=== PATIENT | male | born 1950 | race Caucasian/White ===

== ENCOUNTER 2016-08-31 00:56 | Inpatient (IN) ==
--- NOTE | 2016-08-31 03:28 | Internal Med History&Physical ---
Date of Encounter: 08/31/16 Time of Encounter: 03:28 Assessment and Plan (1) Atrial fibrillation with rapid ventricular response Current visit: Yes Status: Acute Trigger for A fib/RVR is not apparent at this time. continue with the diltiazem infusion. Will obtain echocardiogram. May need chronic anticoagulation. Cardiology consult for further advice and management. Check TSH (2) Diabetes mellitus Current visit: Yes Status: Chronic Pt had an episode of hypoglycemia. Start sliding scale insulin and reduce the dose of long acting insulin. Qualifiers: Diabetes mellitus type: type 2 Diabetes mellitus complication status: with unspecified complications Diabetes mellitus termite control technician insulin use: with termite control technician use Qualified Code(s): E11.8 - Type 2 diabetes mellitus with unspecified complications; Z79.4 - halfway (current) use of insulin (3) Hypertension Current visit: Yes Status: Chronic Hold home dose of antihypertensives, while on diltiazem infusion Qualifiers: Hypertension type: essential hypertension Qualified Code(s): I10 - Essential (primary) hypertension (4) Pulmonary vascular congestion Current visit: Yes Status: Acute Likely secondary to A fib/RVR. No respiratory distress. Monitor. Expect to improve with improvement of the heart rate (5) DVT prophylaxis Current visit: Yes Status: Acute subQ heparin Internal Medicine - H&P: HPI Chief complaint: Hypoglycemia; palpitations Admitted From: Emergency Dept Plans for Post Hospital Care: Home History of present illness: Mr. Lopez is a 65 year old male with history of diabetes mellitus (insulin treated) and hypertension. He apparently had an episode of hypoglycemia with altered mental status at home. He was taken to emergency department at the [facility], where he was noted to have atrial fibrillation without evidence of response. He was started on diltiazem infusion and admitted to the hospitalist service at [facility], for further management. Pt reports that his blood glucose was not registering (not missed meal / no change to insulin regime), felt jittery and palpitations. EMS was called and taken to the ER. He denies chest pain, shortness of breath, cough, fever, chills, nausea, vomiting, abdominal pain, dysuria, hematuria, changes in bowel habits. He denies any palpitations now. He denies h/o thyroid problems. Past Med Surg Social Fam HX - Past Medical History Medical history: diabetes, hypertension Psychiatric history: no psych history - Social History Smoking Status: Current every day smoker Packs per day: 1.5 ppd Smokeless Tobacco Status: No Alcohol use: none Drug use: none - Family History Father Adopted: [place]: Casa Lopez Family Member Ethnicity: Non- Living Status: Age at : 66 Cause of : prostate cancer Hx Family Cardiac Disorders: No Hx Family Respiratory Disorders: No Hx Family Cancer: Yes Hx Family GI Disorders: Yes Hx Family Genitourinary Disorders: No Hx Family Endocrine Disorder: No Hx Family Musculoskeletal Disorders: No Hx Family Reproductive Disorders: No Internal Medicine - H&P: Meds Aspirin 81 mg PO DAILY 08/30/16 [History] Humalog 08/30/16 [History] Insulin Glargine,Hum.rec.anlog [Lantus Solostar] 100 unit SQ 08/30/16 [History] Lisinopril [Zestril] 08/30/16 [History] Allergies No Known Allergies Allergy (Verified 08/30/16 22:58) All Systems PM: A 10-system review of systems was performed and is negative for pertinent findings except as documented above in the HPI. - Constitutional Vitals: Temp Pulse Resp BP Pulse Ox 97.6 F 113 18 120/64 98 08/31/16 01:56 08/31/16 01:56 08/31/16 01:56 08/31/16 01:56 08/31/16 01:56 Exam: General: Not in acute distress at the time of my evaluation HEENT: Oral mucosa is moist. No conjunctival palor or scleral icterus Neck: No obvious neck swellings Lungs: Clear to auscultation. Occasional right basal crackles Cardiac: Irregular rhythm. No significant murmurs Abdomen: Soft, non tender. Bowel sounds present Genitourinary: No xie catheter Neurological: Alert and oriented. No gross localizing deficits Psych: Not aggressive or agitated Extremities: no significant leg edema Skin: No generalized rash Internal Med - H&P Results - Labs Labs: WBC 11.5, hemoglobin 16.3, hematocrit 49.2, platelets 204, sodium 144, potassium 3.6, bicarbonate 22, BNP 13, creatinine 0.79, glucose 104, troponin 0.03 - EKG Data -: EKG Interpreted by Myself - EKG Data EKG comments: Atrial fibrillation with rapid ventricular response, heart rate 146/min 08/31/16 03:54 - Impressions Chest x-ray done at the [facility] reported pulmonary vascular congestion, without overt pulmonary edema and consolidation
[2016-08-31] MEDS ORDERED: Naloxone 0.4 MG/ML INJ IVP PRN (03:29)
[2016-08-31] MEDS ORDERED: *HR* Dextrose 50 % in Water (Syg) 50 ML SYRINGE IVP PRN (03:36)
[2016-08-31] MEDS ORDERED: Dextrose Gel 15 GM PO PRN ×2 (03:36)
[2016-08-31] MEDS ORDERED: D5% in Water 1,000 ML IVC PRN (03:36)
[2016-08-31 04:41] LABS: Hematocrit 45.8 % (37.5-50.1); Hemoglobin 14.8 g/dL (12.9-16.9); Mean Corpuscular HGB Conc 32.3 g/dL (31.6-35.5); Mean Corpuscular Hemoglobin 28.4 pg (28.0-33.3); Mean Corpuscular Volume 87.7 fL (83.0-100.0); Mean Platelet Volume 10.5 fL (9.4-12.4); Platelet Count 181 K/mcL (140-400); Red Blood Count 5.22 M/mcL (4.19-5.50); Red Cell Distribution Width 14.4 % (11.5-14.5)
[2016-08-31] MEDS ORDERED: 0.9 % Sodium Chloride 500 ML ONE (04:44)
[2016-08-31 04:59] LABS: Magnesium 1.6 mg/dL (1.6-2.6)
[2016-08-31 05:26] LABS: Thyroid Stimulating Hormone 1.287 mcIU/mL (0.350-4.840)
[2016-08-31] MEDS: Nicotine 21 MG PATCH.TD24 TD SCH ×2 (06:06→07:49)
[2016-08-31] MEDS: Insulin LISPRO 300 UNITS/3 ML VIAL SQ SCH ×3 (07:48→16:57)
[2016-08-31] MEDS ORDERED: Magnesium Sulfate 1 GM in D5% in Water 100 ML IVPB ONE (07:53)
[2016-08-31] MEDS ORDERED: *HR* Heparin 5,000 UNIT/ML VIAL SQ SCH (08:00)
--- NOTE | 2016-08-31 12:18 | Cardiology Consult Note ---
Date of Encounter: 08/31/16 Time of Encounter: 10:30 Assessment and Plan (1) Hypoglycemia Current Visit: No Status: Acute Per cardiology: -Hypoglycemia with reported "unable to read" due to being too low and reported loss of consciousness. -Treated by EMS -Management per primary service. (2) Atrial fibrillation with rapid ventricular response Current Visit: No Status: Acute Per cardiology: -New onset atrial fibrillation with RVR. -ECG with atrial fibrillation, HR 146. -Denies palpitations/fluttering. -On cardizem drip. -HRs controlled, cardizem oral ordered per primary service. -Echo pending. -[id number] score 3 (age, HTN, DM). Recommend superintendent terminal anticoagulation. Patient agreeable. Patient prefers eliquis or xarelto to coumadin. Discussed need for echo results before recommendations for anticoagulation would be given. - will wean cardizem drip to off. -Will fleming check eliquis and xarelto. -Awaiting echocardiogram results. -Will switch cardizem to long acting in am. -Will continue to monitor HR and BP. (3) Hypertension Current Visit: Yes Status: Chronic Per cardiology: -KNown hypertension. -On casey at home, not currently receiving. -On cardizem. -Bps 100-110s systolic. -Recommend restarting casey inhibitor when BP will tolerate. -Will continue to monitor. Qualifiers: Hypertension type: essential hypertension Qualified Code(s): I10 - Essential (primary) hypertension (4) Elevated troponin Current Visit: Yes Status: Acute Per cardiology: -Elevated troponin in the setting of low blood sugar and afib RVR. -Troponin 0.03, 0.1 -ECG with no ischemic changes. -Deneis chest pain, shortness of breath, or fatigue. -Echo pending. -DO not suspect NSTEMI, suspect demand ischemia related to hypoglycemia and a.fib RVR. NO cardiac rehab warranted at this time. -Further recommendations pending echo. Discussion w patient/family: The assessment and plan as outlined above was discussed with the patient and/or family members who expressed understanding and agreement. All questions were answered. Thank you for involving us in the care of your patient. Please call with any questions. Discussed and reviewed with . History of Present Illness Consult date: 08/31/16 Requesting physician: Oliva Waldron Consult reason: a.fib RVR Chief complaint: low blood sugar History of present illness: Mr. Lopez is a 65 year old male with a relevant past medical history of DM and HTN. Patient states he was feeling well yesterday when his sugar dropped. Patient states he lost consciousness. Patient's called squad and squad was unable to obtain a blood sugar level due to sugar being so long. Patient was treated for low blood sugar and presented to [facility]. Patient was noted to be in atrial fibrillation with RVR. Cardiology was consulted. Patient denies previous history of atrial fibrillation. Patient denies palpitations/fluttering. Patient denies chest pain or shortness of breath. Patient denies bleeding/blood loss. Past Med Surg Social Fam HX - Past Medical History Attestation: Yes The following information was validated with the patient. Source: patient, old records reviewed, obtained from family Medical history: diabetes, hypertension Psychiatric history: no psych history - Social History Smoking Status: Current every day smoker Packs per day: 1.5 ppd Smokeless Tobacco Status: No Alcohol use: none Drug use: none - Family History Father Adopted: [place]: Casa Lopez Family Member Ethnicity: Non- Living Status: Age at : 66 Cause of : prostate cancer Hx Family Cardiac Disorders: No Hx Family Respiratory Disorders: No Hx Family Cancer: Yes Hx Family GI Disorders: Yes Hx Family Genitourinary Disorders: No Hx Family Endocrine Disorder: No Hx Family Musculoskeletal Disorders: No Hx Family Reproductive Disorders: No Medications and Allergies Aspirin 81 mg PO DAILY 08/30/16 [History] Humalog 08/30/16 [History] Insulin Glargine,Hum.rec.anlog [Lantus Solostar] 100 unit SQ 08/30/16 [History] Lisinopril [Zestril] 08/30/16 [History] Allergies No Known Allergies Allergy (Verified 08/30/16 22:58) All Systems Review: A 10-system review of systems was performed and is negative for pertinent findings except as documented above in the HPI. - Cardiovascular Cardiovascular: as per HPI (Low blood sugar) Physical Examination Vital Signs, Last 4 Hours Temp Pulse Resp BP Pulse Ox 08/31/16 12:05 97.6 F 77 18 131/73 94 General: Conversant, No Apparent Distress HEENT: Atraumatic, Normocephaly, Mucus Membranes Moist Neck: No JVD, Normal carotid pulses Cardiac: Reg Rate and Rhythm, No Murmur, Other (Irregularly, irregular) Lungs: Normal Breath Sounds, No Wheeze, Rales, Rhonchi Neuro: Alert and responsive, No focal deficits noted Abdomen: Soft, Non-Tender Skin: No rashes noted on visualized skin Musculoskeletal: No Chest Wall Tenderness Extremities: No Clubbing, No Cyanosis, No Edema, Normal Pulses Results 08/31/16 04:04 Lab Results Active Medications Dextrose/Water (Dextrose 50% (Syg)) 25 ml IVP AD PRN PRN Reason: Hypoglycemia Stop: 03/02/17 03:37 Diltiazem HCl (Cardizem) 60 mg PO Q8HR KALLI Stop: 03/02/17 08:01 Last Admin: 08/31/16 09:16 Dose: 60 mg Glucagon (Glucagen) 1 mg IM ONCE PRN PRN Reason: Hypoglycemia Stop: 03/02/17 03:37 Glucose (Gluctose) 15 gm PO ONCE PRN PRN Reason: Hypoglycemia Stop: 03/02/17 03:37 Glucose (Gluctose) 30 gm PO ONCE PRN PRN Reason: Hypoglycemia Stop: 03/02/17 03:37 Heparin Sodium (Porcine) (Heparin) 5,000 unit SQ Q8HR KALLI Stop: 03/02/17 08:01 Last Admin: 08/31/16 07:48 Dose: Not Given Dextrose (Dextrose 5%) 1,000 mls @ 100 mls/hr IVC .Q10H PRN PRN Reason: HYPOGLYCEMIA Stop: 03/02/17 03:37 Diltiazem HCl 125 mg/ Dextrose 125 mls @ 5 mls/hr IVC .Q24H KALLI; 5 MG/HR PRN Reason: Protocol Stop: 03/02/17 03:46 Last Titration: 08/31/16 10:51 Dose: 0 mg/hr, 0 mls/hr Insulin Human Lispro (Humalog) 0 units SQ HS KALLI PRN Reason: Protocol Stop: 03/02/17 21:01 Insulin Human Lispro (Humalog) 0 units SQ TIDAC KALLI PRN Reason: Protocol Stop: 03/02/17 07:31 Last Admin: 08/31/16 12:22 Dose: 8 units Naloxone HCl (Narcan) 0.4 mg IVP Q2MIN PRN PRN Reason: Opioid Reversal Stop: 03/02/17 03:30 Nicotine (Nicoderm) 21 mg TD DAILY KALLI PRN Reason: Protocol Stop: 03/02/17 04:56 Last Admin: 08/31/16 07:49 Dose: Not Given Laboratory Tests 08/30/16 08/30/16 08/31/16 23:33 23:33 04:04 Hgb 14.8 D Creatinine 0.79 Magnesium Troponin I 0.03 TSH 08/31/16 08/31/16 04:04 04:04 Hgb Creatinine Magnesium 1.6 Troponin I 0.10 H* TSH 1.287 - Imaging and Cardiology Chest Xray: report reviewed Echo: pending - EKG Interpretation EKG results cardiology: personally reviewed (ECG with atrial fibrillation, HR 146.), other (Telemetry reviewed with average HR 107, atrial fibrillation previous 12 hours. Currently 90s atrial fibrillation.) Consult Discharge Plan - Plan Referrals: Shelby Alvarez, [facility] [employer] [facility] [Primary Care Provider] - 09/08/16 9:30 am (please follow up as schedule...)
[2016-08-31] MEDS ORDERED: Diltiazem CD (24hr) 120 MG CAPSULE PO SCH (13:30)
[2016-08-31] MEDS: Aspirin 81 MG TAB.CHEW PO SCH (13:47)
[2016-08-31] MEDS: APIXABAN 5 MG TABLET PO SCH ×2 (16:20→21:03)
--- NOTE | 2016-08-31 18:49 | Internal Med Progress Note ---
Date of Encounter: 08/31/16 Time of Encounter: 09:00 - Assessment and plan (1) Atrial fibrillation with rapid ventricular response Current Visit: No Status: Acute Assessment and plan: Rate is well controlled. Switch to sinus rhythm now. Continue Cardizem by mouth, may need long-term anticoagulation. Waiting for echo results. Cardio consult appreciated (2) Diabetes mellitus Current Visit: Yes Status: Chronic Assessment and plan: Patient has 1 episode of hypoglycemia. Will closely monitor glucose level. Decrease insulin dose to Levemir 20 units HS plus low dose sliding scale. Glu 301 now. Qualifiers: Diabetes mellitus type: type 2 Diabetes mellitus complication status: with unspecified complications Diabetes mellitus mcc insulin use: with mcc use Qualified Code(s): E11.8 - Type 2 diabetes mellitus with unspecified complications; Z79.4 - shelter (current) use of insulin (3) Hypertension Current Visit: Yes Status: Chronic Assessment and plan: Continue home medication. BP is stable Qualifiers: Hypertension type: essential hypertension Qualified Code(s): I10 - Essential (primary) hypertension (4) DVT prophylaxis Current Visit: Yes Status: Acute Assessment and plan: Heparin subcutaneously (5) Hypoglycemia Current Visit: No Status: Acute Assessment and plan: Closely monitor glucose level. Hypoglycemia protocol applied - Time Spent With Patient 25 - 35 minutes - Subjective Interval history: Patient is a 65-year-old male admitted for A. fib with rapid ventricular response. Past medical history is significant for diabetes, hypertension. Patient was seen and examined. Feel fine. No palpitation. Denies chest pain or shots of breath. No further hypoglycemia. Vitals are stable. Heart rate switched to sinus right now. Cardiology consult appreciated. Continue current treatment. - Constitutional Vitals: Temp Pulse Resp BP Pulse Ox 97.5 F L 82 18 151/75 94 08/31/16 15:24 08/31/16 15:24 08/31/16 15:24 08/31/16 15:24 08/31/16 15:24 General appearance: Present: A&O X 3, pleasant, no acute distress, answers questions appropriately - Head Head exam: Present: atraumatic, normocephalic - Eye Eye exam: Present: PERRL, conjuntiva pink, sclera anicteric Pupils: Present: PERRL - Neck Neck exam general surgery: Present: supple, trachea midline. Absent: lymphadenopathy - Respiratory Respiratory exam: Present: CTAB. Absent: accessory muscle use, rales, rhonchi, wheezes - Cardiovascular Cardiovascular exam: Present: RRR, +S1, +S2. Absent: diastolic murmur, gallop, rubs, systolic murmur - GI/Abdominal GI/Abdominal exam: Present: normal bowel sounds, soft, no peritoneal signs. Absent: distended, tenderness - Extremities Exam Extremities exam: Present: warm, radial pulses palpable and symetrical. Absent : calf tenderness, cyanotic, pedal edema - Neurological Exam Neurological exam: Present: CN II-XII intact, oriented X3, no focal deficits. Absent: pronater drift, facial droop, speech deficit - Skin Skin exam: Present: dry, intact Internal Medicine: Result - Labs CBC & Chem 7: 08/31/16 04:04 Labs: Short CBC 08/31/16 Range/Units 04:04 WBC 8.4 (4.3-11.1) K/mcL Hgb 14.8 D (12.9-16.9) g/dL Hct 45.8 (37.5-50.1) % Plt Count 181 (140-400) K/mcL Cardiac Enzymes 08/31/16 08/31/16 Range/Units 04:04 14:33 Troponin I 0.10 H* 0.03 (0-0.03) ng/mL Consult Discharge Plan - Plan Referrals: Shelby Alvarez, IRINA [Primary Care Provider] - 09/08/16 9:30 am (please follow up as schedule...)
[2016-08-31] MEDS ORDERED: Insulin DETEMIR 100 UNIT/ML X5UNITS SQ SCH (21:00)
[2016-08-31] MEDS ORDERED: Insulin LISPRO 300 UNITS/3 ML VIAL SQ SCH (21:00)
[2016-09-01] MEDS ORDERED: Regadenoson 0.4 MG/5 ML SYRINGE IVP ONE (06:11)
[2016-09-01 06:13] LABS: Basophils % 0.4 %; Eosinophils # 0.3 K/mcL (0.0-0.6); Eosinophils % 4.3 %; Hematocrit 43.7 % (37.5-50.1); Hemoglobin 14.5 g/dL (12.9-16.9); Immature Granulocytes % 0.4 % (0-4); Lymphocytes # 2.1 K/mcL (0.6-4.6); Lymphocytes % 30.9 %; Mean Corpuscular HGB Conc 33.2 g/dL (31.6-35.5); Mean Corpuscular Hemoglobin 29.1 pg (28.0-33.3); Mean Corpuscular Volume 87.6 fL (83.0-100.0); Mean Platelet Volume 10.3 fL (9.4-12.4); Monocytes # 0.7 K/mcL (0.0-1.3); Monocytes % 9.9 %; Neutrophils # 3.7 K/mcL (1.6-8.9); Platelet Count 188 K/mcL (140-400); Red Blood Count 4.99 M/mcL (4.19-5.50); Red Cell Distribution Width 14.6 % (11.5-14.5); Segmented Neutrophils % 54.1 %
[2016-09-01 06:21] LABS: BUN/Creatinine Ratio 14 (6-26); Blood Urea Nitrogen 11 mg/dL (8-26); Carbon Dioxide 26 mEq/L (19-29); Chloride 107 mEq/L (98-109); Glucose 253 mg/dL (70-99); Osmolality,Calculated 294 (280-300); Potassium 4.6 mEq/L (3.5-4.5); Sodium 138 mEq/L (136-145); eGFR For African Americans > 60 (> 60); eGFR For Non-African Americans > 60 (> 60)
--- NOTE | 2016-09-01 08:01 | Discharge Summary ---
Date of Encounter: 09/01/16 Time of Encounter: 08:00 - Discharge Diagnosis (1) Atrial fibrillation with rapid ventricular response Priority: Primary Status: Resolved (2) Diabetes mellitus Priority: Secondary Status: Chronic Qualifiers: Diabetes mellitus type: type 2 Diabetes mellitus complication status: with unspecified complications Diabetes mellitus detention insulin use: with terminal carman use Qualified Code(s): E11.8 - Type 2 diabetes mellitus with unspecified complications; Z79.4 - skilled nursing (current) use of insulin (3) Hypertension Priority: Secondary Status: Chronic Qualifiers: Hypertension type: essential hypertension Qualified Code(s): I10 - Essential (primary) hypertension (4) DVT prophylaxis Priority: Secondary Status: Acute (5) Hypoglycemia Priority: Primary Status: Acute - Discharge Medications Prescriptions: RX: Apixaban [Eliquis] 5 mg PO BID #60 tablet RX: Diltiazem CD (24hr) [Cardizem CD] 180 mg PO DAILY #30 cap.er.24h RX: Nicotine Patch [Nicoderm] 21 mg TD DAILY #14 patch.td24 Home Medications: RX: Aspirin 81 mg PO DAILY 08/30/16 [History] RX: Lisinopril [Zestril] 20 mg PO DAILY 08/30/16 [History] RX: Tadalafil [Cialis] 5 mg PO DAILY PRN 08/31/16 [History] RX: Apixaban [Eliquis] 5 mg PO BID #60 tablet 09/01/16 [Rx] RX: Diltiazem CD (24hr) [Cardizem CD] 180 mg PO DAILY #30 cap.er.24h 09/01/16 [ Rx] RX: Insulin Glargine,Hum.rec.anlog [Lantus Solostar] 40 unit SQ HS #0 09/01/16 [Rx] RX: Insulin LISPRO [Humalog Kwikpen U-100] 6 - 15 unit SQ TID #0 MDD PER SLIDING SCALE 09/01/16 [Rx] RX: Nicotine Patch [Nicoderm] 21 mg TD DAILY #14 patch.td24 09/01/16 [Rx] Allergies/Adverse Reactions: Allergies No Known Allergies Allergy (Verified 08/30/16 22:58) Procedures/tests Complete & Pending: Procedures Performed prior 72 hours Category Date Time Status NM megha perf SPECT multi [NM] Routine Exams 09/01/16 08:00 Ordered EV echocardiogram Routine Y 08/31/16 03:37 Completed SP pharm nuclear stress Routine Y 09/01/16 07:30 Ordered - Notes to Outpatient Provider 1. Patient's insulin dose has been decreased because of hypoglycemia. Please follow-up glucose and hemoglobin A1c. Date of admission: 08/31/16 04:34 Primary care physician: Shelby Alvarez CNP Consults: 08/31/16 03:37 Consult to Cardiology [CONS] Routine Comment: Consulting Provider: [facility] [place] Reason for Consult: New onset atrial fibrillation with RVR Call Completed: No Discharging clinician: El Cunningham Anticipated date of discharge: 09/01/16 - Patient Status Disposition: Home, Self-Care Condition: Good Functional capacity at discharge: independent ambulation Overall status at discharge: patient is back to baseline - Discharge Instructions Follow Up With: Shelby Alvarez CNP [Primary Care Provider] - 09/08/16 9:30 am (please follow up as schedule...) - Diet and Activity Activity: increase activity as tolerated Diet: diabetic diet, low fat, low cholesterol, low salt diet Interval History: Mr. Lopez is a 65 year old male with history of diabetes mellitus (insulin treated) and hypertension. He apparently had an episode of hypoglycemia with altered mental status at home. He was taken to emergency department at the [facility], where he was noted to have atrial fibrillation without evidence of response. He was started on diltiazem infusion and admitted to the hospitalist service at [facility], for further management. Pt reports that his blood glucose was not registering (not missed meal / no change to insulin regime), felt jittery and palpitations. EMS was called and taken to the ER. He denies chest pain, shortness of breath, cough, fever, chills, nausea, vomiting, abdominal pain, dysuria, hematuria, changes in bowel habits. He denies any palpitations now. He denies h/o thyroid problems. Hospital course: Mr. Lopez is a 65 year old male admitted for A Fib with RVR. Patient also reports one episode of hypoglycemia before admission. Patient was placed on continuous cardiac monitoring, Cardizem drip. His heart rate converted to sinus rhythm. Well controlled by Cardizem by mouth. Cardiology saw patient and anticoagulation started. Patient will discharge home today, his insulin dose was recommended to decrease. Patient understand the importance of monitoring blood sugar and Know how to do it. He had stress test, which results negative. I saw and examined the patient today. He is awake alert, no chest pain, no shortness of breath, no palpitation. Vital signs stable. Patient will discharge home and follow-up with PCP and cardiology as outpatient. Time spent discussing smoking cessation with patient: 3 to 10 minutes - Time Spent with Patient Total time spent providing and/or coordinating discharge services: 25 min Less than 30 minutes - Constitutional Vitals: Temp Pulse Resp BP Pulse Ox 97.9 F 71 16 136/76 94 09/01/16 06:45 09/01/16 06:45 09/01/16 06:45 09/01/16 06:45 09/01/16 06:45 General appearance: Present: A&O X 3, pleasant, no acute distress, answers questions appropriately - Head Head exam: Present: atraumatic, normocephalic - Eye Eye exam: Present: PERRL, conjuntiva pink, sclera anicteric Pupils: Present: PERRL - Neck Neck exam general surgery: Present: supple, trachea midline. Absent: lymphadenopathy - Respiratory Respiratory exam: Present: CTAB. Absent: accessory muscle use, rales, rhonchi, wheezes - Cardiovascular Cardiovascular exam: Present: RRR, +S1, +S2. Absent: diastolic murmur, gallop, rubs, systolic murmur - GI/Abdominal GI/Abdominal exam: Present: normal bowel sounds, soft, no peritoneal signs. Absent: distended, tenderness - Extremities Exam Extremities exam: Present: warm, radial pulses palpable and symetrical. Absent : calf tenderness, cyanotic, pedal edema - Neurological Exam Neurological exam: Present: CN II-XII intact, oriented X3, no focal deficits. Absent: pronater drift, facial droop, speech deficit - Skin Skin exam: Present: dry, intact
[2016-09-01] MEDS ORDERED: Diltiazem CD (24hr) 180 MG CAPSULE PO SCH (09:00)
[2016-09-01] MEDS: Insulin LISPRO 300 UNITS/3 ML VIAL SQ SCH ×2 (10:27→12:12)
[2016-09-01] MEDS: Nicotine 21 MG PATCH.TD24 TD SCH (10:33)
[2016-09-01] MEDS: APIXABAN 5 MG TABLET PO SCH (10:46)
[2016-09-01] MEDS: Aspirin 81 MG TAB.CHEW PO SCH (10:46)
[2016-09-01 10:52] VITALS: BP 156/87
--- NOTE | 2016-09-01 11:05 | Cardiology Progress Note ---
Date of Encounter: 09/01/16 Time of Encounter: 10:30 Assessment and Plan (1) Hypoglycemia Current Visit: No Status: Acute Per cardiology: -Hypoglycemia with reported "unable to read" due to being too low and reported loss of consciousness. -Treated by EMS -Management per primary service. (2) Atrial fibrillation with rapid ventricular response Current Visit: No Status: Resolved Per cardiology: -New onset atrial fibrillation with RVR. -ECG with atrial fibrillation, HR 146. -Denies palpitations/fluttering. -On cardizem CD 180mg daily. -Patient now sinus rhythm with average HR 78. -Echo 08/31/16 with LVEF 55%, mild aortic regurgitation, all choudhury with normal motion. -[id number] score 3 (age, HTN, DM). Recommend longterm anticoagulation. Patient agreeable. Patient prefers eliquis or xarelto to coumadin. -Started on eliquis. Pateint denies bleeding or blood loss. Hemoglobin stable. -Eliquis is being prior aurthorized with insurance to assess affordability. If not prior authed prior to discharge will give pateint eliquis card and will re- assess in outpatient setting. Can consider switching to coumadin if eliquis unaffordable. -Will continue to monitor in outpatient setting. -Cardiology will sign off and will follow in outpatient setting. Follow up set. (3) Hypertension Current Visit: Yes Status: Chronic Per cardiology: -KNown hypertension. -On casey at home, not currently receiving. -On cardizem. -Bps 130-150ss systolic. -Will re-start casey inhibiotr. -Will continue to monitor in outpatient setting. Qualifiers: Hypertension type: essential hypertension Qualified Code(s): I10 - Essential (primary) hypertension (4) Elevated troponin Current Visit: Yes Status: Acute Per cardiology: -Elevated troponin in the setting of low blood sugar and afib RVR. -Troponin 0.03, 0.1, and 0.03. -ECG with no ischemic changes. -Deneis chest pain, shortness of breath, or fatigue. -Echo as above. -Stress test negative for ischemia or infarct. -DO not suspect NSTEMI, suspect demand ischemia related to hypoglycemia and a.fib RVR. NO cardiac rehab warranted at this time. Discussion w patient/family: The assessment and plan as outlined above was discussed with the patient and/or family members who expressed understanding and agreement. All questions were answered. Thank you for involving us in the care of your patient. Please call with any questions. Discussed and reviewed with . Subjective Principal diagnosis: hypoglycemia/ atrial fibrillation with RVR Interval history: Patient with hypoglycemic event at home. Noted to be in atrial fibrillation with RVR on arrival. Patient currently sinus rhythm. Patient denies palpitations /fluttering. Patient denies bleeding or blood loss. Patient denies chest pain. Objective Vital Signs, Last 4 Hours Temp Pulse Resp BP Pulse Ox 09/01/16 10:50 97.5 F L 86 18 156/87 94 General: Conversant, No Apparent Distress HEENT: Atraumatic, Normocephaly, Mucus Membranes Moist Neck: No JVD, Normal carotid pulses Cardiac: Reg Rate and Rhythm, Normal S1 and S2, No Murmur Lungs: Normal Breath Sounds, No Wheeze, Rales, Rhonchi Neuro: Alert and responsive, No focal deficits noted Abdomen: Soft, Non-Tender Skin: No rashes noted on visualized skin Musculoskeletal: No Chest Wall Tenderness Extremities: No Clubbing, No Cyanosis, No Edema, Normal Pulses Results 09/01/16 05:24 09/01/16 05:24 Lab Results Active Medications Apixaban (Eliquis) 5 mg PO BID [facility] Stop: 03/02/17 15:01 Last Admin: 09/01/16 10:46 Dose: 5 mg Aspirin (Aspirin) 81 mg PO DAILY [facility]I Stop: 03/02/17 12:46 Last Admin: 09/01/16 10:46 Dose: 81 mg Dextrose/Water (Dextrose 50% (Syg)) 25 ml IVP AD PRN PRN Reason: Hypoglycemia Stop: 03/02/17 03:37 Diltiazem HCl (Cardizem Cd) 180 mg PO DAILY KALLI Stop: 03/03/17 09:01 Last Admin: 09/01/16 10:46 Dose: 180 mg Glucagon (Glucagen) 1 mg IM ONCE PRN PRN Reason: Hypoglycemia Stop: 03/02/17 03:37 Glucose (Gluctose) 15 gm PO ONCE PRN PRN Reason: Hypoglycemia Stop: 03/02/17 03:37 Glucose (Gluctose) 30 gm PO ONCE PRN PRN Reason: Hypoglycemia Stop: 03/02/17 03:37 Dextrose (Dextrose 5%) 1,000 mls @ 100 mls/hr IVC .Q10H PRN PRN Reason: HYPOGLYCEMIA Stop: 03/02/17 03:37 Insulin Detemir (Levemir) 20 unit SQ HS KALLI Stop: 03/02/17 21:01 Last Admin: 08/31/16 21:03 Dose: 20 unit Insulin Human Lispro (Humalog) 0 units SQ HS KALLI PRN Reason: Protocol Stop: 03/02/17 21:01 Last Admin: 08/31/16 21:04 Dose: 6 units Insulin Human Lispro (Humalog) 0 units SQ TIDAC KALLI PRN Reason: Protocol Stop: 03/02/17 07:31 Last Admin: 09/01/16 10:27 Dose: Not Given Naloxone HCl (Narcan) 0.4 mg IVP Q2MIN PRN PRN Reason: Opioid Reversal Stop: 03/02/17 03:30 Nicotine (Nicoderm) 21 mg TD DAILY KALLI PRN Reason: Protocol Stop: 03/02/17 04:56 Last Admin: 09/01/16 10:33 Dose: Not Given Laboratory Tests 08/30/16 08/31/16 08/31/16 23:33 04:04 04:04 Hgb Creatinine Troponin I 0.03 0.10 H* TSH 1.287 08/31/16 09/01/16 09/01/16 14:33 05:24 05:24 Hgb 14.5 Creatinine 0.77 Troponin I 0.03 TSH - Imaging and Cardiology Chest Xray: report reviewed Stress Test: pending Echo: report reviewed - EKG Interpretation EKG results cardiology: other (Telemetry reviewed with average HR 78, sinus rhythm. No significant events noted.) Consult Discharge Plan - Plan Referrals: Shelby Alvarez, BUSINESS LIBRARIAN [Primary Care Provider] - 09/08/16 9:30 am (please follow up as schedule...) Prescriptions: Apixaban [Eliquis] 5 mg PO BID #60 tablet Diltiazem CD (24hr) [Cardizem CD] 180 mg PO DAILY #30 cap.er.24h Nicotine Patch [Nicoderm] 21 mg TD DAILY #14 patch.[id number]
--- NOTE | 2016-09-01 12:52 | Nuclear Medicine Stress Report ---
Regadenoson Nuclear Stress Name: Amarjit Lopez Date of Study: 09/01/2016 Date: 1950 Ht: 72.0 in Medical Record#: [id number] Age: 65 Wt: 213.0 lb Gender: Male Order #: [id number] Location: [facility] Room: [facility] Supervising Provider: Tito Bauer CNP Reading Physician: Rnee James DO, FACC, FASE, FASNC Ordering Physician: Fred Lozoya MD Primary Care Physician: Shelby Alvarez CNP Stress Technologist: Manuel Jimenez CRT Body And Fender Mechanic: Winter Johnson Indications: Chest Pain Impression: Pharmacologic stress ECG is negative for ischemia at level of heart rate achieved. Gated EF = 69%. Perfusion imaging was negative for ischemia or infarct. History: Hypertension Diabetes Stress Test Summary: Stress Test Type: Pharmacologic Regadenoson 0.4mg/5ml given IV Baseline Information: Initial Heart Rate: 78 Blood Pressure: 154/78 Stress Information: Test Terminated Due to (primary): As per protocol Maximum Blood Pressure: 140/64 Maximum Heart Rate: 102 Percent Maximum Heart Rate Achieved: 66 Double Product: [id number] METS Reached: 10 Symptoms: No chest symptoms Nuclear Summary: SPECT myocardial perfusion imaging using Tc99m Sestamibi given intravenously was performed at rest and following cardiac stress testing. The resting images were obtained following initial dose of 11.3 mCi. Following stress an additional dose of 31.4 mCi was given at peak exercise or 30 seconds post regadenoson infusion. Medication Given: Time Medication Dose Units Route Findings: Stress Note * Resting ECG demonstrated normal sinus rhythm. * No baseline arrhythmias were noted. * Pharmacologic stress ECG is negative for ischemia at level of heart rate achieved. * No arrhythmias were noted during stress. * Patient had no chest pain during stress. * Normal hemodynamic responses to pharmacologic stress. Study Quality * Study quality is average. Gated EF % * Gated EF = 69%. Left Ventricle * The left ventricle is not dilated. LVEDV = 112 mL. NORMALS * Normal wall motion. * Normal segmental perfusion in stress. * Normal Segmental Perfusion in rest. TID * No evidence of transient ischemic dilatation. TID ratio = 1.05. Lung Uptake * There is no evidence of increase lung uptake. Updated by Rene James DO, FACC, FASE, FASNC on 09/01/2016 12:46:31 PM electronically signed on 09/01/2016 12:47:11 PM with status of Final
[2016-09-01] MEDS ORDERED: Insulin DETEMIR 100 UNIT/ML X5UNITS SQ SCH (21:00)
== END 2016-09-01 14:03 | disposition home or self-care (01) | DRG 310 ==
LOC: 2ANU
PROVIDERS: ADMIT Family Medicine; ATTEND Internal Medicine

== ENCOUNTER 2020-09-03 15:24 | Inpatient (IN) ==
[2020-09-03] MEDS ORDERED: Ondansetron 4 MG/2 ML VIAL IVP PRN (19:52)
[2020-09-03] MEDS ORDERED: Acetaminophen 325 MG TABLET PO PRN (19:52)
[2020-09-03] MEDS ORDERED: Naloxone 0.4 MG/ML INJ IVP PRN (19:52)
[2020-09-03 20:48] LABS: Bilirubin,Urine Negative (Negative); Blood,Urine Negative (Negative); Clarity,Urine Clear (Clear); Color,Urine Yellow (Yellow); Glucose,Urine (UA) Normal (Normal); Ketones,Urine Negative (Negative); Leukocyte Esterase,Urine Negative (Negative); Nitrite,Urine Negative (Negative); Protein,Urine Trace mg/dL (Neg-Trace); Urobilinogen,Urine Normal (Normal)
[2020-09-03] MEDS ORDERED: *HR* Dextrose 50 % in Water (Vial) 50 ML VIAL IVP PRN (21:06)
[2020-09-03] MEDS ORDERED: D5% in Water 1,000 ML IVC PRN (21:06)
[2020-09-03] MEDS ORDERED: Dextrose Gel 15 GM/37.5 ML TUBE PO PRN ×2 (21:06)
[2020-09-03] MEDS ORDERED: *HR* OxyCODONE Immed Rel 5 MG TABLET ONE (22:50)
[2020-09-03] MEDS ORDERED: Insulin LISPRO 300 UNITS/3 ML VIAL SUBQ ONE (22:51)
[2020-09-03] MEDS: *HR* OxyCODONE Immed Rel 5 MG TABLET PO PRN (22:54)
[2020-09-03] MEDS: Insulin LISPRO 300 UNITS/3 ML VIAL SUBQ SCH (22:54)
[2020-09-03] MEDS: 0.9 % Sodium Chloride 1,000 ML IVC SCH (22:55)
[2020-09-04 06:59] LABS: Basophils % 0.3 %; Eosinophils # 0.1 K/mcL (0.0-0.6); Eosinophils % 1.7 %; Hematocrit 37.2 % (37.5-50.1); Immature Granulocytes % 0.4 % (0-4); Lymphocytes # 1.5 K/mcL (0.6-4.6); Lymphocytes % 20.7 %; Mean Corpuscular HGB Conc 32.3 g/dL (31.6-35.5); Mean Corpuscular Hemoglobin 29.3 pg (28.0-33.3); Mean Platelet Volume 10.1 fL (9.4-12.4); Monocytes % 13.7 %; Neutrophils # 4.5 K/mcL (1.6-8.9); Platelet Count 184 K/mcL (140-400); Red Blood Count 4.09 M/mcL (4.19-5.50); Red Cell Distribution Width 14.5 % (11.5-14.5); Segmented Neutrophils % 63.2 %; White Blood Count 7.1 K/mcL (4.3-11.1)
[2020-09-04 07:12] LABS: INR 1.3; Prothrombin Time 15.4 Seconds (9.4-12.1)
[2020-09-04 07:17] LABS: BUN/Creatinine Ratio 15 (6-26); Blood Urea Nitrogen 11 mg/dL (8-23); Calcium 8.3 mg/dL (8.6-10.3); Carbon Dioxide 25 mEq/L (23-29); Chloride 105 mEq/L (98-107); Glucose 296 mg/dL (70-105); Magnesium 1.8 mg/dL (1.6-2.6); Osmolality,Calculated 288 (280-300); Potassium 4.3 mEq/L (3.5-5.1); Sodium 134 mEq/L (136-145); eGFR For African Americans > 60 (> 60); eGFR For Non-African Americans > 60 (> 60)
[2020-09-04] MEDS: 0.9 % Sodium Chloride 1,000 ML IVC SCH (08:47)
[2020-09-04] MEDS: Insulin LISPRO 300 UNITS/3 ML VIAL SUBQ SCH ×3 (08:47→17:09)
[2020-09-04] MEDS: *HR* OxyCODONE Immed Rel 5 MG TABLET PO PRN (08:53)
[2020-09-04] MEDS ORDERED: *HR* FentaNYL (PF) 100 MCG/2 ML VIAL ONE (13:37)
[2020-09-04] MEDS ORDERED: Lidocaine -MPF 2% 2 ML VIAL ONE (13:37)
[2020-09-04] MEDS ORDERED: *HR* Propofol 200 MG/20 ML VIAL IVP ONE (13:37)
[2020-09-04] MEDS ORDERED: *HR* Midazolam HCl 2 MG/2 ML VIAL ONE (13:37)
[2020-09-04] MEDS ORDERED: ROPIVACAINE/PF/NS 0.25% 1 EACH SYRINGE INTRAART ONE (13:42)
[2020-09-04] MEDS ORDERED: Ropivacaine/PF 0.5% 30 ML VIAL ONE (13:42)
[2020-09-04] MEDS ORDERED: CeFAZolin Syr 2,000MG/20 ML 2,000 MG/20 ML SYRINGE IVPB ONE (14:31)
[2020-09-04] MEDS ORDERED: *HR* HYDROcodone/Acet 5/325 mg TABLET PO PRN ×2 (14:41→19:13)
[2020-09-04] MEDS ORDERED: Acetaminophen IV 1,000 MG/100 ML BAG IVPB ONE (14:54)
[2020-09-04] MEDS ORDERED: CeFAZolin 2 GM/120 ML BAG IVPB SCH ×2 (16:00→18:00)
[2020-09-04] MEDS ORDERED: Ondansetron 4 MG/2 ML VIAL ONE (16:08)
[2020-09-04] MEDS ORDERED: Ketorolac 30 MG/ML VIAL ONE (16:28)
[2020-09-04] MEDS ORDERED: Ondansetron 4 MG/2 ML VIAL IVP PRN (19:13)
[2020-09-04] MEDS ORDERED: *HR* OxyCODONE Immed Rel 5 MG TABLET PO PRN (19:13)
[2020-09-04] MEDS ORDERED: Dextrose Gel 15 GM/37.5 ML TUBE PO PRN ×2 (19:13)
[2020-09-04] MEDS ORDERED: Acetaminophen 325 MG TABLET PO PRN (19:13)
[2020-09-04] MEDS ORDERED: Naloxone 0.4 MG/ML INJ IVP PRN (19:13)
[2020-09-04] MEDS ORDERED: *HR* Dextrose 50 % in Water (Vial) 50 ML VIAL IVP PRN (19:13)
[2020-09-04] MEDS ORDERED: D5% in Water 1,000 ML IVC PRN (19:13)
[2020-09-04] MEDS ORDERED: Insulin LISPRO 300 UNITS/3 ML VIAL SUBQ SCH ×2 (21:00)
[2020-09-05] MEDS ORDERED: CeFAZolin 2 GM/120 ML BAG IVPB SCH (02:00)
[2020-09-05 02:58] LABS: Basophils % 0.1 %; Hemoglobin 11.5 g/dL (12.9-16.9); Immature Granulocytes % 0.8 % (0-4); Lymphocytes # 0.5 K/mcL (0.6-4.6); Lymphocytes % 6.3 %; Mean Corpuscular HGB Conc 31.9 g/dL (31.6-35.5); Mean Corpuscular Volume 90.9 fL (83.0-100.0); Mean Platelet Volume 9.9 fL (9.4-12.4); Monocytes # 0.5 K/mcL (0.0-1.3); Monocytes % 6.7 %; Neutrophils # 6.7 K/mcL (1.6-8.9); Platelet Count 158 K/mcL (140-400); Red Blood Count 3.96 M/mcL (4.19-5.50); Red Cell Distribution Width 14.2 % (11.5-14.5); Segmented Neutrophils % 86.1 %; White Blood Count 7.8 K/mcL (4.3-11.1)
[2020-09-05 03:08] LABS: BUN/Creatinine Ratio 26 (6-26); Blood Urea Nitrogen 23 mg/dL (8-23); Calcium 8.4 mg/dL (8.6-10.3); Carbon Dioxide 21 mEq/L (23-29); Chloride 101 mEq/L (98-107); Glucose 470 mg/dL (70-105); Osmolality,Calculated 300 (280-300); Potassium 5.1 mEq/L (3.5-5.1); Sodium 133 mEq/L (136-145); eGFR For African Americans > 60 (> 60); eGFR For Non-African Americans > 60 (> 60)
[2020-09-05] MEDS ORDERED: Insulin LISPRO 300 UNITS/3 ML VIAL SUBQ SCH (07:30)
[2020-09-05] MEDS ORDERED: DilTIAZem CD (24hr) 180 MG CAP.ER.24H PO SCH ×2 (09:00)
[2020-09-05] MEDS ORDERED: Aspirin 81 MG TAB.CHEW PO SCH (09:00)
[2020-09-05] MEDS ORDERED: lisinopriL 20 MG TABLET PO SCH (09:00)
[2020-09-05] MEDS: Aspirin 81 MG TAB.CHEW PO SCH (09:02)
[2020-09-05] MEDS: lisinopriL 20 MG TABLET PO SCH (09:03)
[2020-09-05] MEDS ORDERED: *HR* Metoprolol 5 MG/5 ML VIAL IVP ONE ×2 (10:32→11:32)
[2020-09-05] MEDS: Apixaban 5 MG TABLET PO SCH ×2 (10:45→20:32)
[2020-09-05] MEDS ORDERED: Insulin DETEMIR 100 UNIT/ML X5UNITS SUBQ ONE (11:45)
[2020-09-05] MEDS: Insulin LISPRO 300 UNITS/3 ML VIAL SUBQ SCH ×5 (12:23→20:32)
[2020-09-05] MEDS ORDERED: Insulin LISPRO 300 UNITS/3 ML VIAL SUBQ ONE (15:38)
[2020-09-05] MEDS: DilTIAZem 50 MG in 0.9 % Sodium Chloride 40 ML IVC SCH (16:38)
[2020-09-05] MEDS ORDERED: Insulin DETEMIR 100 UNIT/ML X5UNITS SUBQ SCH (21:00)
[2020-09-06] MEDS ORDERED: Insulin LISPRO 300 UNITS/3 ML VIAL SUBQ ONE (01:19)
[2020-09-06] MEDS ORDERED: Insulin DETEMIR 100 UNIT/ML X5UNITS SUBQ ONE (03:21)
[2020-09-06] MEDS ORDERED: *HR* Metoprolol 5 MG/5 ML VIAL IVP ONE ×2 (03:26→07:51)
[2020-09-06 06:38] LABS: Basophils % 0.2 %; Eosinophils # 0.1 K/mcL (0.0-0.6); Eosinophils % 0.9 %; Hematocrit 32.3 % (37.5-50.1); Hemoglobin 10.5 g/dL (12.9-16.9); Immature Granulocytes % 0.7 % (0-4); Lymphocytes # 2.5 K/mcL (0.6-4.6); Lymphocytes % 23.9 %; Mean Corpuscular HGB Conc 32.5 g/dL (31.6-35.5); Mean Corpuscular Hemoglobin 28.9 pg (28.0-33.3); Mean Platelet Volume 9.9 fL (9.4-12.4); Monocytes # 1.3 K/mcL (0.0-1.3); Monocytes % 12.3 %; Neutrophils # 6.5 K/mcL (1.6-8.9); Platelet Count 181 K/mcL (140-400); Red Blood Count 3.63 M/mcL (4.19-5.50); Red Cell Distribution Width 13.9 % (11.5-14.5); White Blood Count 10.4 K/mcL (4.3-11.1)
[2020-09-06 07:43] LABS: BUN/Creatinine Ratio 32 (6-26); Blood Urea Nitrogen 21 mg/dL (8-23); Calcium 7.9 mg/dL (8.6-10.3); Carbon Dioxide 23 mEq/L (23-29); Chloride 106 mEq/L (98-107); Glucose 147 mg/dL (70-105); Osmolality,Calculated 286 (280-300); Potassium 3.9 mEq/L (3.5-5.1); Sodium 135 mEq/L (136-145); eGFR For African Americans > 60 (> 60); eGFR For Non-African Americans > 60 (> 60)
[2020-09-06] MEDS: *HR* Metoprolol 5 MG/5 ML VIAL IVP ONE ×2 (08:22→08:26)
[2020-09-06] MEDS: Insulin LISPRO 300 UNITS/3 ML VIAL SUBQ SCH ×7 (08:23→23:33)
[2020-09-06] MEDS: Apixaban 5 MG TABLET PO SCH ×2 (08:25→20:24)
[2020-09-06] MEDS: lisinopriL 20 MG TABLET PO SCH (08:25)
[2020-09-06] MEDS: Aspirin 81 MG TAB.CHEW PO SCH (08:25)
[2020-09-06] MEDS ORDERED: DilTIAZem CD (24hr) 240 MG CAP.ER.24H PO SCH (09:00)
[2020-09-06] MEDS: Insulin DETEMIR 100 UNIT/ML X5UNITS SUBQ SCH ×2 (09:09→23:32)
[2020-09-06] MEDS: Metoprolol XL (24 HR) Succ 25 MG TAB.ER.24H PO SCH ×2 (11:13→20:24)
[2020-09-06] MEDS: DilTIAZem 50 MG in 0.9 % Sodium Chloride 40 ML IVC SCH ×3 (11:50→18:39)
[2020-09-07] MEDS: DilTIAZem 50 MG in 0.9 % Sodium Chloride 40 ML IVC SCH ×2 (01:43)
[2020-09-07 07:31] LABS: Basophils % 0.3 %; Eosinophils # 0.2 K/mcL (0.0-0.6); Eosinophils % 2.5 %; Hematocrit 32.1 % (37.5-50.1); Hemoglobin 10.3 g/dL (12.9-16.9); Immature Granulocytes % 0.9 % (0-4); Lymphocytes # 1.4 K/mcL (0.6-4.6); Lymphocytes % 22.3 %; Mean Corpuscular HGB Conc 32.1 g/dL (31.6-35.5); Mean Corpuscular Hemoglobin 28.7 pg (28.0-33.3); Mean Corpuscular Volume 89.4 fL (83.0-100.0); Mean Platelet Volume 10.1 fL (9.4-12.4); Monocytes # 0.8 K/mcL (0.0-1.3); Monocytes % 12.9 %; Neutrophils # 3.9 K/mcL (1.6-8.9); Platelet Count 193 K/mcL (140-400); Red Blood Count 3.59 M/mcL (4.19-5.50); Red Cell Distribution Width 14.1 % (11.5-14.5); Segmented Neutrophils % 61.1 %; White Blood Count 6.4 K/mcL (4.3-11.1)
[2020-09-07 07:53] LABS: BUN/Creatinine Ratio 25 (6-26); Blood Urea Nitrogen 16 mg/dL (8-23); Calcium 8.3 mg/dL (8.6-10.3); Carbon Dioxide 24 mEq/L (23-29); Chloride 103 mEq/L (98-107); Glucose 273 mg/dL (70-105); Magnesium 1.8 mg/dL (1.6-2.6); Osmolality,Calculated 285 (280-300); Potassium 4.3 mEq/L (3.5-5.1); Sodium 132 mEq/L (136-145); eGFR For African Americans > 60 (> 60); eGFR For Non-African Americans > 60 (> 60)
[2020-09-07 08:06] LABS: Thyroid Stimulating Hormone 1.221 mcIU/mL (0.340-5.600)
[2020-09-07] MEDS: Insulin LISPRO 300 UNITS/3 ML VIAL SUBQ SCH ×4 (08:32→14:05)
[2020-09-07] MEDS: Insulin DETEMIR 100 UNIT/ML X5UNITS SUBQ SCH (08:33)
[2020-09-07] MEDS: Apixaban 5 MG TABLET PO SCH (08:34)
[2020-09-07] MEDS: lisinopriL 20 MG TABLET PO SCH (08:34)
[2020-09-07] MEDS: Metoprolol XL (24 HR) Succ 25 MG TAB.ER.24H PO SCH (08:34)
[2020-09-07] MEDS: Aspirin 81 MG TAB.CHEW PO SCH (08:34)
[2020-09-07] MEDS ORDERED: DilTIAZem CD (24hr) 180 MG CAP.ER.24H PO SCH (09:00)
[2020-09-07 10:51] VITALS: BP 127/73
== END 2020-09-07 16:15 | disposition home health service (06) | DRG 494 ==
LOC: 3NENU 15:24 → EMEROOARM 15:24 → 3NENU 21:55 → SUATTDRO 09-04 12:39
PROVIDERS: ADMIT Student in an Organized Health Care Education/Training Program; ATTEND Family Medicine